=== PATIENT | male | born 1940 | race Caucasian/White ===

== ENCOUNTER → 2024-07-13 11:13 | Outpatient (REF) | payer MEDICARE, SELFPAY ==
[2024-07-13 12:25] LABS: Glycohemoglobin (HgbA1c) 5.6 % (4.0-5.6)
[2024-07-13 12:34] LABS: ALT (SGPT) 18 U/L (0-50); AST (SGOT) 31 U/L (17-59); Albumin 4.3 g/dl (3.5-5.0); Alkaline Phosphatase 58 U/L (38-126); Blood Urea Nitrogen 18 mg/dl (9-20); Calcium 9.3 mg/dl (8.4-10.2); Carbon Dioxide 31 mmol/L (22-30); Chloride 100 mmol/L (98-107); Glucose 88 mg/dl (70-99); HDL Cholesterol 69 mg/dl; LDL Cholesterol, Calculated 122 mg/dl; Sodium 142 mmol/L (135-145); Total Cholesterol 204 mg/dl (50-199); Total Protein 7.3 g/dl (6.3-8.2); Triglyceride 66 mg/dl (10-149); Very Low Density Lipoprotein 13 mg/dl (0-30); eGFR > 60.00
[2024-07-13 12:43] LABS: CRP, Highly Sensitive 2.12 mg/L
[2024-07-13 12:45] LABS: Microalbumin, Random Urine 25.2 mg/dl (0.6-1.7); Microalbumin/creatinine Ratio 273.9 mg/g
[2024-07-13 13:01] LABS: TSH 2.04 uIU/ml (0.47-4.68)
== END ==
LOC: REG 11:13
PROVIDERS: ATTENDING PHYSICIAN Family Medicine
DX: I25.10 Atherosclerotic heart disease of native coronary artery without angina pectoris (principal); R80.9 Proteinuria, unspecified; E78.5 Hyperlipidemia, unspecified; R73.03 Prediabetes
CPT/HCPCS: 36415; 80053; 80061; 82043; 82570; 83036; 84443; 86141

== ENCOUNTER → 2024-11-30 13:31 | Outpatient (REF) | payer MEDICARE, SELFPAY ==
--- NOTE | 2024-11-30 15:09 | CARDSERVLU ---
Echocardiogram with Lumason completed after protocol screening completed. Allergies verified.
Patent IV site: __L AC___
IV site flushed with 0.9% NaCl pre and post administration.
Diluted bolus method utilized to enhance visualization of ventricular mann.
Total volume given: __3__ mL
Patient tolerated all procedures well without complications.
== END ==
LOC: RCS 13:31
PROVIDERS: ATTENDING PHYSICIAN Internal Medicine Cardiovascular Disease; FAMILY PHYSICIAN Family Medicine
DX: I10 Essential (primary) hypertension (principal); I48.0 Paroxysmal atrial fibrillation; I42.9 Cardiomyopathy, unspecified
CPT/HCPCS: 93306; Q9950

== ENCOUNTER → 2025-10-16 12:23 | Outpatient (REF) | payer MEDICARE, SELFPAY ==
[2025-10-16 12:56] LABS: Hematocrit 45.3 % (39.0-52.0); Hemoglobin 15.1 g/dL (13.0-18.0); Mean Corp Hgb Conc. 33.3 g/dL (33.0-37.0); Mean Corpuscular Volume 88.5 fL (80.0-94.0); Nucleated Red Blood Cells % 0 % (-); Platelet Count 185 10^3/uL (130-400); Red Cell Dist. Width 12.6 % (11.5-14.5)
[2025-10-16 13:58] LABS: ALT (SGPT) 19 U/L (0-50); AST (SGOT) 26 U/L (17-59); Albumin 4.5 g/dl (3.5-5.0); Alkaline Phosphatase 49 U/L (38-126); Blood Urea Nitrogen 20 mg/dl (9-20); Calcium 9.0 mg/dl (8.4-10.2); Carbon Dioxide 31 mmol/L (22-30); Chloride 98 mmol/L (98-107); Glucose 92 mg/dl (70-99); HDL Cholesterol 69 mg/dl; LDL Cholesterol, Calculated 129 mg/dl; Potassium 5.2 mmol/L (3.5-5.1); Sodium 132 mmol/L (135-145); Total Protein 7.5 g/dl (6.3-8.2); Very Low Density Lipoprotein 13 mg/dl (0-30); eGFR > 60.00
[2025-10-16 14:29] LABS: TSH 1.90 uIU/ml (0.47-4.68)
[2025-10-18 11:48] LABS: CRP, Ultra Sensitive 3.02 mg/L (0.30-5.00)
== END ==
LOC: REG 12:23
PROVIDERS: ATTENDING PHYSICIAN Family Medicine
DX: E78.5 Hyperlipidemia, unspecified (principal); R80.9 Proteinuria, unspecified; R79.82 Elevated C-reactive protein (CRP); R53.82 Chronic fatigue, unspecified
CPT/HCPCS: 36415; 80053; 80061; 82570; 84156; 84443; 85025; 86141